=== PATIENT | female | born 1990 | race Caucasian/White ===

== ENCOUNTER 2017-06-03 20:22 | Emergency (ER) | payer BC ==
--- NOTE | 2017-06-03 20:52 | EDM.PDOC ---
ED HPI GENERAL MEDICAL PROBLEM - General Chief Complaint: Respiratory Problem Stated Complaint: POSSIBLE FLU Time Seen by Provider: 06/03/17 20:30 Source of Information: Reports: Patient History Limitations: Reports: No Limitations - History of Present Illness INITIAL COMMENTS - FREE TEXT/NARRATIVE: HISTORY AND PHYSICAL: History of present illness: Patient is a 26-year-old female who presents to the emergency room today with complaints of cough, fever, body aches 4 days. She was seen at the walk-in clinic on Tuesday and prescribed Augmentin for a sinus infection/ear infection. Since that time she has had diarrhea and symptoms have not improved. His concern today that she may have influenza. Denies any abdominal pain, nausea, vomiting, chest pain or shortness of breath. Has not received the [id number] influenza vaccine Review of systems: As per history of present illness and below otherwise all systems reviewed and negative. Past medical history: As per history of present illness and as reviewed below otherwise noncontributory. Surgical history: As per history of present illness and as reviewed below otherwise noncontributory. Social history: No reported history of drug or alcohol abuse. Family history: As per history of present illness and as reviewed below otherwise noncontributory. Physical exam: Neuro: Well-developed and well-nourished 26-year-old female. Alert and oriented. Nontoxic appearing and in no acute distress. HEENT: Atraumatic, normocephalic, pupils reactive, negative for conjunctival pallor or scleral icterus, TMs normal bilaterally, mucous membranes moist, throat clear, neck supple, nontender, trachea midline. Lungs: Clear to auscultation, breath sounds equal bilaterally, chest nontender. Heart: S1S2, regular rate and rhythm, no overt murmur Abdomen: Soft, nondistended, nontender. Negative for masses or hepatosplenomegaly. Negative for costovertebral tenderness. Pelvis: Stable nontender. Genitourinary: Deferred. Rectal: Deferred. Extremities: Atraumatic, moves all extremities per self, negative for cords or calf pain. Neurovascular unremarkable. Neuro: Awake, alert, oriented. Cranial nerves II through XII unremarkable. Cerebellum unremarkable. Motor and sensory unremarkable throughout. Exam nonfocal. Chest x-ray was normal with no sign of infiltrate or you. Influenza is negative. Patient is unable to provide a stool sample and would like to cancel the study at this time. As her symptoms and presentation appear viral did suggest she stop the antibiotic. Take the medication that has been prescribed. She is agreeable to plan of care and denies any questions at this time. Diagnostics: Chest x-ray, influenza, stool study Therapeutics: [] Impression: Viral illness Plan: 1. Please stop your antibiotic. If you continue to have diarrhea please follow- up with your primary care provider as you may want a stool cultured. 2. Supportive care measures as we discussed: Tylenol and/or ibuprofen as needed , encourage fluids to prevent dehydration, and plenty of rest. Phenergan with codiene has been prescribed for cough. Do not drive while taking this. 3. Follow-up with your primary caregiver in the next couple days. Return to the ED as needed and as discussed. Definitive disposition and diagnosis as appropriate pending reevaluation and review of above. Duration: Day(s): Location: Reports: Head, Chest generalized Pain Score (Numeric/FACES): 6 - Related Data Allergies Allergy/AdvReac Type Severity Reaction Status Date / Time acetaminophen [From Vicodin] Allergy Hives Verified 06/03/17 20:35 hydrocodone [From Vicodin] Allergy Hives Verified 06/03/17 20:35 Home Meds: Home Meds Amoxicillin/Potassium Clav [Amox-Clav 875-125 mg Tablet] 125 - 875 mg PO BID [History] Control 06/03/17 [History] Past Medical History HEENT History: Reports: Otitis Media Respiratory History: Reports: Asthma Other Respiratory History: exercised-induced asthma Other Genitourinary History: PCOS - Past Surgical History HEENT Surgical History: Reports: Oral Surgery, Tonsillectomy Respiratory Surgical History: Reports: None Male Surgical History: Reports: None Social & Family History - Family History Family Medical History: Noncontributory - Tobacco Use Smoking Status *Q: Never Smoker Second Hand Smoke Exposure: No - Caffeine Use Caffeine Use: Reports: Coffee, Energy Drinks - Recreational Drug Use Recreational Drug Use: No ED ROS GENERAL - Review of Systems Review Of Systems: ROS reveals no pertinent complaints other than HPI. ED EXAM, GENERAL - Physical Exam Exam: See Below (See dictation) Course - Vital Signs Last Recorded V/S: Last Vital Signs Temp 99 F 06/03/17 20:30 Pulse 94 06/03/17 20:30 Resp 18 06/03/17 20:30 BP 147/83 H 06/03/17 20:30 Pulse Ox 99 06/03/17 20:30 - Orders/Labs/Meds Orders: Active Orders 24 hr Category Date Time Status Chest 2V [CR] Stat Exams 06/03/17 20:46 Taken Departure - Departure Time of Disposition: 21:54 Disposition: Home, Self-Care 01 Clinical Impression: Viral illness - Discharge Information Referrals: PCP,None [Primary Care Provider] - Forms: ED Department Discharge Additional Instructions: My general discharge The following information is given to patients seen in the emergency department who are being discharged to home. This information is to outline your options for follow-up care. We provide all patients seen in our emergency department with a follow-up referral. The need for follow-up, as well as the timing and circumstances, are variable depending upon the specifics of your emergency department visit. If you don't have a primary care physician on staff, we will provide you with a referral. We always advise you to contact your personal physician following an emergency department visit to inform them of the circumstance of the visit and for follow-up with them and/or the need for any referrals to a consulting specialist. The emergency department will also refer you to a specialist when appropriate. This referral assures that you have the opportunity for follow-up care with a specialist. All of these measure are taken in an effort to provide you with optimal care, which includes your follow-up. Under all circumstances we always encourage you to contact your private physician who remains a resource for coordinating your care. When calling for follow-up care, please make the office aware that this follow-up is from your recent emergency room visit. If for any reason you are refused follow-up, please contact the [facility] Emergency Department at and asked to speak to the emergency department charge nurse. [facility] [address] [place] [id number] 1. Please stop your antibiotic. If you continue to have diarrhea please follow- up with your primary care provider as you may want a stool cultured. 2. Supportive care measures as we discussed: Tylenol and/or ibuprofen as needed , encourage fluids to prevent dehydration, and plenty of rest. Phenergan with codiene has been prescribed for cough. Do not drive while taking this. 3. Follow-up with your primary caregiver in the next couple days. Return to the ED as needed and as discussed. - My Orders Last 24 Hours: My Active Orders 06/03/17 20:46 Chest 2V [CR] Stat - Assessment/Plan Last 24 Hours: My Active Orders 06/03/17 20:46 Chest 2V [CR] Stat
--- NOTE | 2017-06-06 12:55 | CR ---
EXAM DATE: 06/03/17 PATIENT'S AGE: 26 Patient: LESLEE PICHARDO Facility: [place], [place] Site . Site : 1990 Study: XRay Chest [id number]/26/2018 9:36:13 PM Ordering Physician: Doctor Hobson Final Report: INDICATION: cough x1 wk TECHNIQUE: Chest 2 views. COMPARISON: None. FINDINGS: Cardiovascular and mediastinum: Heart size and vasculature are normal in caliber and appearance. Mediastinum is within normal limits. Lungs and pleural spaces: Lungs are clear. No sign of infiltrate or mass. No sign of pleural effusion. No pneumothorax. Bones and soft tissues: No significant findings. IMPRESSION: Unremarkable chest. Dictated by: Alli Lance MD @ 06/03/2017 22:07:41 (Electronic Signature) Report Signed by Proxy. DAVIDA
== END 2017-06-03 22:03 | disposition home or self-care (01) ==
LOC: MW.ED 20:22 → EDSEX 20:22 → MW.ED 22:03
DX: B34.9 Viral infection, unspecified (principal); Z88.6 Allergy status to analgesic agent
CPT/HCPCS: 71046; 71046-26; 87804; 99283

== ENCOUNTER 2017-12-24 14:42 | Emergency (ER) | payer BC ==
--- NOTE | 2017-12-24 15:02 | EDM.PDOC ---
ED HPI GENERAL MEDICAL PROBLEM - General Chief Complaint: Laceration Stated Complaint: SLICED HER LT BUTTOCK Time Seen by Provider: 12/24/17 14:47 - History of Present Illness INITIAL COMMENTS - FREE TEXT/NARRATIVE: HISTORY AND PHYSICAL: History of present illness: Patient is a 27-year-old white female who presents with concern of laceration to her left buttock this was done on a rock. Tetanus status to be determined Review of systems: As per history of present illness and below otherwise all systems reviewed and negative. Past medical history: As per history of present illness and as reviewed below otherwise noncontributory. Surgical history: As per history of present illness and as reviewed below otherwise noncontributory. Social history: No reported history of drug or alcohol abuse. Family history: As per history of present illness and as reviewed below otherwise noncontributory. Physical exam: HEENT: Atraumatic, normocephalic, pupils reactive, negative for conjunctival pallor or scleral icterus, mucous membranes moist, throat clear, neck supple, nontender, trachea midline. Lungs: Clear to auscultation, breath sounds equal bilaterally, chest nontender. Heart: S1S2, regular, negative for clicks, rubs, or JVD. Abdomen: Soft, nondistended, nontender. Negative for masses or hepatosplenomegaly. Negative for costovertebral tenderness. Pelvis: Stable nontender. Genitourinary: Deferred. Rectal: Deferred. Extremities: Atraumatic, negative for cords or calf pain. Neurovascular unremarkable. Neuro: Awake, alert, oriented. Cranial nerves II through XII unremarkable. Cerebellum unremarkable. Motor and sensory unremarkable throughout. Exam nonfocal. Buttock: Patient is approximately 5 cm moderate depth laceration to her left buttock good hemostasis. Diagnostics: None Therapeutics: Patient was anesthetized 1% lidocaine without epinephrine prepped and draped in sterile manner closed with 5-0 chromic suture bacitracin was applied Impression: #1 buttock laceration Definitive disposition and diagnosis as appropriate pending reevaluation and review of above. - Related Data Allergies Allergy/AdvReac Type Severity Reaction Status Date / Time acetaminophen [From Vicodin] Allergy Hives Verified 06/03/17 20:35 hydrocodone [From Vicodin] Allergy Hives Verified 06/03/17 20:35 Home Meds: Home Meds Control 01/26/18 [History] Past Medical History HEENT History: Reports: Otitis Media Respiratory History: Reports: Asthma Other Respiratory History: exercised-induced asthma Other Genitourinary History: PCOS - Past Surgical History HEENT Surgical History: Reports: Oral Surgery, Tonsillectomy Respiratory Surgical History: Reports: None Male Surgical History: Reports: None Social & Family History - Family History Family Medical History: Noncontributory - Caffeine Use Caffeine Use: Reports: Coffee, Energy Drinks ED ROS GENERAL - Review of Systems Review Of Systems: ROS reveals no pertinent complaints other than HPI. ED EXAM, SKIN/RASH Exam: See Below (See dictation) Departure - Departure Time of Disposition: 15:01 Disposition: Home, Self-Care 01 Condition: Good Clinical Impression: Laceration - Discharge Information *PRESCRIPTION DRUG MONITORING PROGRAM REVIEWED*: Not Applicable *COPY OF PRESCRIPTION DRUG MONITORING REPORT IN PATIENT DERRELL: Not Applicable Referrals: PCP,None [Primary Care Provider] - Additional Instructions: The following information is given to patients seen in the emergency department who are being discharged to home. This information is to outline your options for follow-up care. We provide all patients seen in our emergency department with a follow-up referral. The need for follow-up, as well as the timing and circumstances, are variable depending upon the specifics of your emergency department visit. If you don't have a primary care physician on staff, we will provide you with a referral. We always advise you to contact your personal physician following an emergency department visit to inform them of the circumstance of the visit and for follow-up with them and/or the need for any referrals to a consulting specialist. The emergency department will also refer you to a specialist when appropriate. This referral assures that you have the opportunity for followup care with a specialist. All of these measure are taken in an effort to provide you with optimal care, which includes your followup. Under all circumstances we always encourage you to contact your private physician who remains a resource for coordinating your care. When calling for followup care, please make the office aware that this follow-up is from your recent emergency room visit. If for any reason you are refused follow-up, please contact the [facility] emergency department at and asked to speak to the emergency department charge nurse. Follow-up primary medical doctor as needed as discussed return as needed as discussed
[2017-12-24] MEDS ORDERED: Bacitracin Oint 1 GM U/D Packet TOP ONE (15:15)
== END 2017-12-24 15:25 | disposition home or self-care (01) ==
LOC: MW.ED 14:42
DX: S31.821A Laceration without foreign body of left buttock, initial encounter (principal); Z88.6 Allergy status to analgesic agent; W22.8XXA Striking against or struck by other objects, initial encounter
CPT/HCPCS: 12002; 99282